=== PATIENT | female | born 1965 | race Caucasian/White ===

== ENCOUNTER 2019-01-29 11:37 | Emergency (ER) | payer MEDICAID, OTHER ==
[2019-01-29] MEDS ORDERED: NS 1,000 ML IV ONE (12:23)
[2019-01-29 12:31] LABS: PLATELET COUNT 260 10^3/uL (150-400)
--- NOTE | 2019-01-29 12:35 | EDPHY ---
H & P Time Seen by Provider: 01/29/19 11:57 HPI/ROS: HPI Shortness of breath, malaise, sore throat, fast heart rate. 53-year-old female by private [facility] This patient reports that on Tuesday she developed a sore throat and intermittent fevers. She reports today she has felt much more fatigued, short of breath and her throat has been bothering her more. She has had a low-grade nonproductive cough. She reports also feeling fatigued with generalized malaise and has felt her heart racing fast. She was initially evaluated at urgent care and then was sent here for further evaluation. ROS: Constitutional: As above, no chills. Eyes: No discharge. No changes in vision. ENT: As above. No nasal congestion or rhinorrhea. Respiratory: As above. Cardiac: No chest pain, no palpitations. Gastrointestinal: No abdominal pain, no vomiting, no diarrhea. Genitourinary: No hematuria. No dysuria or increased frequency with urination. Musculoskeletal: No back pain. No neck pain. No myalgias or arthralgias. Skin: No rashes. Neurological: No headache. No focal weakness or altered sensation. Past medical history: Hysterectomy. Social history: Nonsmoker. Working professional. Here by herself. No alcohol. Physical Exam: General Appearance: Alert, she does not appear in distress. She looks well. This patient is responding to questions appropriately and in full sentences. This patient appears well-hydrated and well-nourished. Eyes: Pupils equal and round no pallor or injection. No lid edema, erythema or injection. ENT, Mouth: Mucous membranes are moist. The pharyngeal tissues are unremarkable. No edema or swelling. No asymmetry suggestive of abscess. No erythema or exudates. No stridor on auscultation of her neck. No voice changes. No cervical, submandibular, submental lymphadenopathy. Respiratory: There are no retractions, lungs are clear to auscultation with good air movement bilaterally. Cardiovascular: Regular rate and rhythm. Tachycardia. No murmur appreciated. Skin: Warm and dry, no rashes. Musculoskeletal: Neck is supple and nontender. Extremities are symmetrical. All joints range without pain or impingement. Psychiatric: No agitation. No depression. Database: EKG: EKG time is 11:48 a.m.; EKG shows a narrow complex normal sinus rhythm with a ventricular rate of 111. The GA, QRS, QT intervals are within normal limits. There are no ST-T wave changes indicative of ischemic or injury pattern. No evidence of right heart strain. Interpreted by me. Imaging: Chest x-ray PA and lateral: The cardiac mediastinal silhouette is unremarkable. No evidence of infiltrate or pneumothorax. No acute cardiopulmonary disease process. Interpreted by me. Procedures: Emergency department course: Triage vital signs reviewed. She is afebrile. She is mildly hypertensive. Vital signs are otherwise normal. She is afebrile. IV was placed. Strep swab and influenza assay obtained. IV placed. She was placed on a electric truck driver. She was started on IV normal saline with 1 L to be given over the next hour. She will be given IV Toradol for her sore throat pending a normal creatinine. 2:15 p.m., patient re-evaluated, resting comfortably at this time. She is feeling better. rn anesthetist shows a narrow complex sinus rhythm with ventricular rate of 92. Pulse oximetry is 97% on room air. Results of her diagnostic workup discussed with her. Negative flu. Negative strep. Serious bacterial infection unlikely. Cardiac etiology verses thromboembolic disease unlikely. She is aware of her iron deficiency anemia. At this time the patient does feel comfortable going home. I feel she is safe for discharge. Follow-up and return to emergency department precautions reviewed with her. All of her questions were answered. She was discharged from the emergency department in good condition. Differential Diagnosis: The differential diagnosis on this patient includes but is not limited to viral syndrome, iron deficiency anemia, dehydration. Retropharyngeal abscess, epiglottitis, peritonsillar abscess, tracheitis, pulmonary embolism, acute coronary syndrome unlikely. This represents a partial list of diagnoses considered. These considerations are based on history, physical exam, past history, reassessment and diagnostic testing. Smoking Status: Former smoker Constitutional: Initial Vital Signs Temperature (C) 36.8 C 01/29/19 11:42 Heart Rate 114 H 01/29/19 11:42 Respiratory Rate 16 01/29/19 11:42 Blood Pressure 147/107 H 01/29/19 11:42 O2 Sat (%) 95 01/29/19 11:42 O2 Delivery Mode Room Air Allergies/Adverse Reactions: No Known Allergies Allergy (Unverified 01/29/19 11:42) Home Medications: Medication Instructions Recorded NK [No Known Home Meds] 01/29/19 Medical Decision Making - Diagnostics Imaging Results: Imaging Impressions Chest X-Ray 01/29/19 12:24 Impression: Airways disease. No pneumonia. Difficult to exclude a small posterior right pleural effusion versus scarring. - Data Points Laboratory Results: Laboratory Results 01/29/19 11:55 01/29/19 11:55 01/29/19 01/29/19 01/29/19 Unknown 12:45 11:59 WBC RBC Hgb Hct MCV MCH MCHC RDW Plt Count MPV Neut % (Auto) Lymph % (Auto) Collin % (Auto) Eos % (Auto) Baso % (Auto) Nucleat RBC Rel Count Absolute Neuts (auto) Absolute Lymphs (auto) Absolute Monos (auto) Absolute Eos (auto) Absolute Basos (auto) Absolute Nucleated RBC Immature Gran % Immature Gran # D-Dimer Sodium Potassium Chloride Carbon Dioxide Anion Gap BUN Creatinine Estimated GFR Glucose Calcium POC Troponin I 0.01 ng/mL ng/mL (0.00-0.08) Nasal Influenza A PCR NEGATIVE FOR FLU A (NEGATIVE) Nasal Influenza B PCR NEGATIVE FOR FLU B (NEGATIVE) Group A Strep Screen NEGATIVE (NEGATIVE) Group A Strep DNA Pending 01/29/19 01/29/19 01/29/19 11:55 11:55 11:55 WBC 3.85 10^3/uL 10^3/uL (3.80-9.50) RBC 4.63 10^6/uL 10^6/uL (4.18-5.33) Hgb 9.8 g/dL L g/dL (12.6-16.3) Hct 33.1 % L % (38.0-47.0) MCV 71.5 fL L fL (81.5-99.8) MCH 21.2 pg L pg (27.9-34.1) MCHC 29.6 g/dL L g/dL (32.4-36.7) RDW 16.1 % H % (11.5-15.2) Plt Count 260 10^3/uL 10^3/uL (150-400) MPV 9.8 fL fL (8.7-11.7) Neut % (Auto) 68.2 % % (39.3-74.2) Lymph % (Auto) 21.8 % % (15.0-45.0) Collin % (Auto) 8.1 % % (4.5-13.0) Eos % (Auto) 0.8 % % (0.6-7.6) Baso % (Auto) 0.8 % % (0.3-1.7) Nucleat RBC Rel Count 0.0 % % (0.0-0.2) Absolute Neuts (auto) 2.63 10^3/uL 10^3/uL (1.70-6.50) Absolute Lymphs (auto) 0.84 10^3/uL L 10^3/uL (1.00-3.00) Absolute Monos (auto) 0.31 10^3/uL 10^3/uL (0.30-0.80) Absolute Eos (auto) 0.03 10^3/uL 10^3/uL (0.03-0.40) Absolute Basos (auto) 0.03 10^3/uL 10^3/uL (0.02-0.10) Absolute Nucleated RBC 0.00 10^3/uL 10^3/uL (0-0.01) Immature Gran % 0.3 % % (0.0-1.1) Immature Gran # 0.01 10^3/uL 10^3/uL (0.00-0.10) D-Dimer 0.30 ug/mLFEU ug/mLFEU (0.00-0.50) Sodium 137 mEq/L mEq/L (135-145) Potassium 4.1 mEq/L mEq/L (3.5-5.2) Chloride 105 mEq/L mEq/L (97-110) Carbon Dioxide 20 mEq/l L mEq/l (22-31) Anion Gap 12 mEq/L mEq/L (6-14) BUN 20 mg/dL mg/dL (7-23) Creatinine 0.6 mg/dL mg/dL (0.6-1.0) Estimated GFR > 60 Glucose 119 mg/dL H mg/dL (70-100) Calcium 9.8 mg/dL mg/dL (8.5-10.4) POC Troponin I Nasal Influenza A PCR Nasal Influenza B PCR Group A Strep Screen Group A Strep DNA Medications Given: Discontinued Medications Sodium Chloride (Ns) 1,000 mls @ 0 mls/hr IV ONCE ONE; Wide Open PRN Reason: Protocol Stop: 01/29/19 12:24 Last Admin: 01/29/19 12:43 Dose: 1,000 mls Ketorolac Tromethamine (Toradol) 30 mg IVP EDNOW ONE Stop: 01/29/19 13:11 Last Admin: 01/29/19 13:16 Dose: 30 mg Point of Care Test Results: Chemistry 01/29/19 11:59 POC Troponin I 0.01 ng/mL ng/mL (0.00-0.08) Departure - Departure Disposition: Home, Routine, Self-Care Clinical Impression: Pharyngitis, Viral syndrome Condition: Good Instructions: Viral Syndrome (ED), Pharyngitis (ED) Additional Instructions: Read and follow provided instructions. Follow-up with your primary care physician in 1-2 days for re-evaluation. Get plenty of rest and keep yourself well hydrated. Take Tylenol as directed for fever. You can start taking ibuprofen tomorrow morning. Ibuprofen dosin mg every 6 hours with meals for the next 3 days only. Take only as needed for pain. Return to the emergency department for worsening symptoms, shortness of breath, lightheadedness, chest pain, difficulty swallowing, worsening sore throat or other serious concerns. Referrals: NONE *PRIMARY CARE P,. [Primary Care Provider] - As per Instructions Stand Alone Forms: School Excuse
[2019-01-29] MEDS ORDERED: KETOROLAC 30 MG/1 ML SDV IVP ONE (13:10)
[2019-01-29 14:33] VITALS: BP 138/90
--- NOTE | 2019-01-29 15:31 | CPEKG ---
Test Reason : OPEN Blood Pressure : / mmHG Vent. Rate : 111 BPM Atrial Rate : 112 BPM P-R Int : 150 ms QRS Dur : 087 ms QT Int : 354 ms P-R-T Axes : 069 017 033 degrees QTc Int : 481 ms Sinus tachycardia Minimal ST depression, lateral leads Confirmed by Elvis Bernal [id number] on 01/29/2019 3:30:44 PM Referred By: PHYSICIAN ED Confirmed By:Elvis Bernal
== END 2019-01-29 14:33 | disposition home or self-care (01) ==
DX: J02.9 Acute pharyngitis, unspecified (principal); B34.9 Viral infection, unspecified; E86.9 Volume depletion, unspecified
CPT/HCPCS: 84484-ER; 96374; J1885